=== PATIENT | female | born 1960 | race Caucasian/White ===

== ENCOUNTER 2019-09-29 14:36 | Inpatient (IN) | payer MEDICARE ==
[~2019-09-29] VITALS: Ht 154.9 cm; Wt 95.3 kg
--- NOTE | 2019-09-29 14:40 | NUR ---
Dr. Sequeira here to see pt for MSE.
[2019-09-29] MEDS ORDERED: LEVO200T9 PO (14:58)
[2019-09-29] MEDS ORDERED: DULO60CA45 PO (14:58)
[2019-09-29] MEDS ORDERED: BUDE10.22 INH (14:58)
[2019-09-29] MEDS ORDERED: GABA600T12 PO (14:58)
[2019-09-29] MEDS ORDERED: AMLO10TA7 PO (14:58)
[2019-09-29] MEDS ORDERED: QUET100T PO (14:58)
--- NOTE | 2019-09-29 15:53 | NUR ---
Full telephone SBAR report given to [facility] ZANA Hicks.
--- NOTE | 2019-09-29 16:20 | NUR ---
Brought pt via wheelchair to [facility] for admission. Pt stable and nad noted upon transfer.
--- NOTE | 2019-09-29 16:25 | NUR ---
Gps/Collections Professional- Admitted a 59 years old female via wheel chair. Alert, oriented, noted emotionally labile during admission , crying spells noted. Skin intact, face flushed, tattoos noted to her arms. Upon face to face , Patient admitted to still feeling sad, denies any plan to hurt self at this time. Patient claimed she uses wheel chair r/t her osteoarthritis on her hips, > pain with mobility. Alert oriented x3-4 . Oriented to unit settings, routine admission care done. Safety reviewed, emphasized.
[2019-09-29 16:30] VITALS: BP 153/91
[2019-09-29] MEDS ORDERED: BLOOD SUGAR DIAGNOSTIC 1 EACH STRIP VI ONE (16:45)
[2019-09-29] MEDS ORDERED: MAG HYDROX/AL HYDROX/SIMETH 30 ML LIQUID UDC PO PRN (16:45)
[2019-09-29] MEDS ORDERED: MAGNESIUM HYDROXIDE 30 ML LIQUID UDC PO PRN (16:45)
[2019-09-29] MEDS ORDERED: LORAZEPAM 1 MG TABLET PO PRN (16:45)
[2019-09-29 20:00] VITALS: BP 140/73
--- NOTE | 2019-09-29 20:10 | NUR ---
Patient received in bed AAO x3. No acute distress or SOB was noted. No complain of pain. No SI. No behavioral issues. Calm and quite. Bed in low and locked position.Bed alarm is on. Continue to monitor.
[2019-09-30] MEDS: LEVOTHYROXINE SODIUM 25 MCG TABLET PO SCH (06:03)
[2019-09-30] MEDS: LEVOTHYROXINE SODIUM 200 MCG TABLET PO SCH (06:03)
[2019-09-30 07:03] LABS: BILIRUBIN,TOTAL 0.5 mg/dL (0.2-1.0); CREATININE 0.7 mg/dL (0.6-1.3); POTASSIUM 3.7 mmol/L (3.5-5.1); TOTAL PROTEIN, SERUM 7.2 g/dL (6.4-8.2)
[2019-09-30 07:06] LABS: BASOPHILS % (AUTO) 0.8 % (0.0-2.0); EOSINOPHILS # (AUTO) 0.1 K/uL (0.0-0.7); EOSINOPHILS % (AUTO) 1.7 % (0.0-7.0); HEMATOCRIT 33.1 % (31.2-41.9); HEMOGLOBIN 10.9 g/dL (10.9-14.3); LYMPHOCYTES # (AUTO) 1.5 K/uL (20.0-40.0); LYMPHOCYTES % (AUTO) 31.3 % (20.5-51.5); MEAN CORPUSCULAR HEMOGLOBIN 29.7 uug (24.7-32.8); MEAN CORPUSCULAR HGB CONC 33 g/dL (32.3-35.6); MEAN CORPUSCULAR VOLUME 90.3 fL (75.5-95.3); MONOCYTES # (AUTO) 0.5 K/uL (2.0-10.0); MONOCYTES % (AUTO) 10.4 % (0.0-11.0); NEUTROPHILS # (AUTO) 2.7 K/uL (1.8-8.9); NEUTROPHILS % (AUTO) 55.8 % (38.5-71.5); PLATELET COUNT (AUTO) 282 K/uL (179-408); RED BLOOD CELL COUNT(AUTO) 3.67 MIL/uL (3.63-4.92); WHITE BLOOD COUNT (AUTO) 4.9 K/uL (3.8-11.8)
[2019-09-30 07:13] LABS: THYROID STIMULATING HORMONE 43.855 mIU/mL (0.358-3.740)
[2019-09-30 07:30] VITALS: BP 137/89
[2019-09-30 07:58] LABS: MAGNESIUM 1.9 mg/dL (1.8-2.4); PHOSPHOROUS 2.7 mg/dL (2.5-4.9)
[2019-09-30] MEDS ORDERED: ZOLPIDEM 5 MG TABLET PO PRN (08:00)
[2019-09-30] MEDS: AMLODIPINE 10 MG TABLET PO SCH (08:38)
[2019-09-30] MEDS ORDERED: LEVOTHYROXINE SODIUM 200 MCG TABLET PO SCH (09:00)
--- NOTE | 2019-09-30 10:56 | NUR ---
Social Work Initial Discharge Plan: Per records, patient resides at [address] [place] [id number]; ([phone]). Per pt, she would like to return back and she stated that she lives with her friend Gabriel ([phone]) ([phone]). terrazzo worker apprentice will work with the patient and the MD regarding appropriate discharge planning. terrazzo worker apprentice will work with the patient and the MD regarding appropriate discharge planning. terrazzo worker apprentice will form a safe and proper discharge.
--- NOTE | 2019-09-30 10:58 | NUR ---
Social Work Family Contact: outside maintenance worker contacted patient's son Maximino ([phone]) and left a voicemail. This jingle writer also contacted patient's friend Gabriel ([phone]) ([phone]) and was unable to reach. Per patient, she lives with her friend Gabriel. This jingle writer was unable to confirm at this moment and will attempt again.
--- NOTE | 2019-09-30 12:15 | NUR ---
Social Work Family Contact: shearing shed worker spoke with patient's son Maximino ([phone]) who stated that he has minimal contact with patient. Per Maximino, he stated that last he heard was his mother was living at a Motel.
[2019-09-30] MEDS: FLUTICASONE/VILANTEROL 1 EACH BLST.W.DEV INH SCH (12:58)
[2019-09-30] MEDS: ASPIRIN 81 MG TAB.CHEW PO SCH (12:58)
--- NOTE | 2019-09-30 14:10 | NUR ---
Gps/Corporate Intern- Showered self ind. after set up. Participated in her therapy, stayed up on her wheel chair, roam around . Interacting fairly weel with her peers. Seen by Dr Bailey.
[2019-09-30] MEDS: DULOXETINE 60 MG CAPSULE.DR PO SCH (14:59)
[2019-09-30 15:29] VITALS: BP 132/87
[2019-09-30] MEDS: GABAPENTIN 300 MG CAPSULE PO SCH (16:13)
[2019-09-30] MEDS: QUETIAPINE FUMARATE 100 MG TABLET PO SCH (20:33)
[2019-09-30 20:44] VITALS: BP 135/85
[2019-09-30] MEDS ORDERED: ATORVASTATIN 20 MG TABLET PO SCH (21:00)
[2019-10-01] MEDS: LEVOTHYROXINE SODIUM 25 MCG TABLET PO SCH (06:15)
[2019-10-01] MEDS: LEVOTHYROXINE SODIUM 200 MCG TABLET PO SCH (06:16)
[2019-10-01 06:26] LABS: BILIRUBIN,TOTAL 0.4 mg/dL (0.2-1.0); CREATININE 0.8 mg/dL (0.6-1.3); POTASSIUM 3.5 mmol/L (3.5-5.1)
[2019-10-01 07:30] VITALS: BP 136/80
[2019-10-01] MEDS: GABAPENTIN 300 MG CAPSULE PO SCH ×3 (08:45→16:15)
[2019-10-01] MEDS: ASPIRIN 81 MG TAB.CHEW PO SCH (08:45)
[2019-10-01] MEDS: AMLODIPINE 10 MG TABLET PO SCH (08:46)
[2019-10-01] MEDS: FLUTICASONE/VILANTEROL 1 EACH BLST.W.DEV INH SCH (08:48)
[2019-10-01] MEDS: DULOXETINE 60 MG CAPSULE.DR PO SCH (08:48)
[2019-10-01 16:00] VITALS: BP 135/81
--- NOTE | 2019-10-01 20:00 | NUR ---
RECEIVED PATIENT IN THE DAY ROOM WATCHING TV AND INTERACTING WITH OTHER CLIENTS. PATIENT NOTED A/O X 3, CALM AND PLEASANT UPON APPROACHED. UPON INTERVIEW, PATIENT DENIES SI/HI/VH/AV, PT IS ABLE TO CFS. SHE IS REASSURED FOR HER SAFETY, SAFETY AND FALL PRECAUTION IN PLACE. V/S STABLE. WILL CONTINUE TO MONITOR.
[2019-10-01 20:18] VITALS: BP 147/89
[2019-10-01] MEDS: QUETIAPINE FUMARATE 100 MG TABLET PO SCH (20:23)
[2019-10-01] MEDS: LORAZEPAM 0.5 MG TABLET PO PRN (21:44)
[2019-10-01] MEDS: ACETAMINOPHEN 325 MG TABLET PO PRN (21:44)
--- NOTE | 2019-10-01 21:45 | NUR ---
PATIENT APPROACHED THE NURSING STATION STATING THAT SHE IS FEELING ANXIOUS; HOWEVER, SHE CONTINUE DENYING SI. ABLE TO CFS. ATIVAN 0.5MG PO PRN WAS GIVEN ALONG WITH TYLENOL 650MG PO FOR GENERALIZED MILD PAIN. PATIENT IS REASSURED AND REDIRECTED. WILL CONTINUE TO MONITOR.
--- NOTE | 2019-10-01 23:00 | NUR ---
PATIENT IS SLEEPING COMFORTABLE IN HER BED. WILL CONTINUE TO MONITOR Q15 MIN.
[2019-10-02] MEDS: LEVOTHYROXINE SODIUM 200 MCG TABLET PO SCH (06:37)
[2019-10-02] MEDS: LEVOTHYROXINE SODIUM 25 MCG TABLET PO SCH (06:37)
[2019-10-02 07:30] VITALS: BP 136/88
[2019-10-02] MEDS: DULOXETINE 60 MG CAPSULE.DR PO SCH (08:30)
[2019-10-02] MEDS: ASPIRIN 81 MG TAB.CHEW PO SCH (08:31)
[2019-10-02] MEDS: GABAPENTIN 300 MG CAPSULE PO SCH ×3 (08:31→16:29)
[2019-10-02] MEDS: AMLODIPINE 10 MG TABLET PO SCH (08:31)
[2019-10-02] MEDS: FLUTICASONE/VILANTEROL 1 EACH BLST.W.DEV INH SCH (08:32)
[2019-10-02 15:16] VITALS: BP 126/83
--- NOTE | 2019-10-02 15:50 | NUR ---
Gps/Colorer Hides And Skins- Patient came crying to the Nurses station, claimed one the patient, made her get upset, claimed the pt. was passing out gas, making funny sounds/noise while they are watching TV . Pt. stated" i just want to punch him " patient making a fist, face flushed w/ anger. Instructed pt to stay away from him, relax, prn ativan 0.5 mg 1 tab given po.
[2019-10-02] MEDS: LORAZEPAM 0.5 MG TABLET PO PRN ×2 (15:51→22:04)
[2019-10-02] MEDS: QUETIAPINE FUMARATE 100 MG TABLET PO SCH (20:29)
[2019-10-02 20:38] VITALS: BP 141/77
[2019-10-02] MEDS: ACETAMINOPHEN 325 MG TABLET PO PRN (22:04)
--- NOTE | 2019-10-03 06:33 | NUR ---
Patient visible in dining room, fair interaction with staff and peers. Compliant with HS medication. Requested a prn for anxiety, and prn for a headache with effective outcome. Patient slept a total of six hours. Continue to monitor as well as provide a safe environment.
[2019-10-03] MEDS: LEVOTHYROXINE SODIUM 25 MCG TABLET PO SCH (07:12)
[2019-10-03] MEDS: LEVOTHYROXINE SODIUM 200 MCG TABLET PO SCH (07:13)
[2019-10-03 07:30] VITALS: BP 134/60
[2019-10-03] MEDS: ASPIRIN 81 MG TAB.CHEW PO SCH (08:39)
[2019-10-03] MEDS: DULOXETINE 60 MG CAPSULE.DR PO SCH (08:39)
[2019-10-03] MEDS: FLUTICASONE/VILANTEROL 1 EACH BLST.W.DEV INH SCH (08:39)
[2019-10-03] MEDS: AMLODIPINE 10 MG TABLET PO SCH (08:39)
[2019-10-03] MEDS: GABAPENTIN 300 MG CAPSULE PO SCH ×3 (09:56→16:38)
[2019-10-03] MEDS: LORAZEPAM 0.5 MG TABLET PO PRN ×2 (13:17→18:59)
--- NOTE | 2019-10-03 14:29 | NUR ---
Received patient in bed asleep this am. As the morning progressed and breakfast trays were being passed out, patient was heard yelling from the bed for " Everybody shut up! Its too noisy out there". Patient has been compliant with medications but claims she can not go into the day room without receiving a "Ativan, because the other patients annoy me ". Patient is very labile, laughing and socializing one minute, then having a tantrum and crying the next. Study Abroad Coordinator able to engage in meaningful conversations for short periods of time. Continuing to monitor for safety and behavior escalation. No acute distress noted at this time.
[2019-10-03 16:00] VITALS: BP 134/81
[2019-10-03] MEDS: QUETIAPINE FUMARATE 100 MG TABLET PO SCH (20:21)
[2019-10-03 20:39] VITALS: BP 133/88
[2019-10-04] MEDS: LEVOTHYROXINE SODIUM 200 MCG TABLET PO SCH (06:00)
[2019-10-04] MEDS: LEVOTHYROXINE SODIUM 25 MCG TABLET PO SCH (06:00)
[2019-10-04 07:39] VITALS: BP 112/64
[2019-10-04] MEDS: LORAZEPAM 0.5 MG TABLET PO PRN ×3 (07:48→21:09)
[2019-10-04] MEDS: FLUTICASONE/VILANTEROL 1 EACH BLST.W.DEV INH SCH (08:01)
[2019-10-04] MEDS: ASPIRIN 81 MG TAB.CHEW PO SCH (08:01)
[2019-10-04] MEDS: GABAPENTIN 300 MG CAPSULE PO SCH ×3 (08:01→16:38)
[2019-10-04] MEDS: DULOXETINE 60 MG CAPSULE.DR PO SCH (08:01)
[2019-10-04] MEDS: AMLODIPINE 10 MG TABLET PO SCH (08:01)
--- NOTE | 2019-10-04 09:03 | NUR ---
Social Work Coordination of Care: beet worker contacted [facility] ([phone]) and spoke with Linnette who confirmed that patient has a room. Room 144.
--- NOTE | 2019-10-04 10:16 | NUR ---
Social Work Coordination of Care: fast foods worker contacted [facility] ([phone]) and spoke with Yisel who scheduled an appointment. Patient will follow-up with (psychiatrist) Dr. Kahn at [facility] [address]; ([phone]) and has an appointment scheduled on October 10 at 8AM via telephone. fast foods worker contacted [facility] ([phone]) and spoke with Deepa who scheduled an appointment. Patient will follow-up with (Lag Screwer) Dr. Richardson at [facility] [address] [place] [address]; ([phone]) and has an appointment scheduled on October 11 at 10AM.
--- NOTE | 2019-10-04 12:51 | NUR ---
Social Work Firearms Report: Overlock Hemmer completed and submitted a [employer] firearms report for 5250 grave disability certification. A copy of report has been placed in patient chart.
--- NOTE | 2019-10-04 13:02 | NUR ---
Social Work Brief Substance Abuse Intervention: Patient was provided with a brief substance abuse intervention and referred to the following substance abuse programs: [facility] Substance Abuse Self-helpline ([phone]); [facility] [address] [place] [address] ([phone]); [facility] [address] [facility] [address] ([phone]); [facility] ([phone]); [facility] ([phone]); [facility] ([phone]); [facility] ([phone]).
--- NOTE | 2019-10-04 13:19 | NUR ---
Social Work Individual Therapy: habilitation worker met with patient for brief counseling. habilitation worker assessed for patients level of suicidality. Patient denies SI. Patient was tearful with this keno writer and stated that she wants to go home. Patient stated that she was never SI and that she does not know why she was brought to the hospital. This keno writer comforted patient and actively listened. This keno writer advised patient to alert this keno writer or the nursing staff if she were to feel sad. habilitation worker will provide resources upon discharge.
[2019-10-04 16:30] VITALS: BP 118/72
[2019-10-04 19:55] VITALS: BP 139/86
[2019-10-04] MEDS: QUETIAPINE FUMARATE 100 MG TABLET PO SCH (20:07)
--- NOTE | 2019-10-04 23:00 | NUR ---
received to care, up in w/c, watching tv with peers. pleasant upon approach. denies SI, or desire to harm self. no mood swings observed. remains calm, and appropriate. PRN ativan was given for anxiety, at 2108. as of 2299, she is asleep, in bed. no distress noted. will continue to monitor closely.
[2019-10-05] MEDS: LORAZEPAM 0.5 MG TABLET PO PRN (03:52)
--- NOTE | 2019-10-05 03:52 | NUR ---
PRN ativan, given, for anxiety.
--- NOTE | 2019-10-05 04:40 | NUR ---
appears to be asleep. no distress noted.
--- NOTE | 2019-10-05 06:00 | NUR ---
slept 6.25 hours. continues to sleep. no distress noted.
[2019-10-05] MEDS: LEVOTHYROXINE SODIUM 25 MCG TABLET PO SCH (06:29)
[2019-10-05] MEDS: LEVOTHYROXINE SODIUM 200 MCG TABLET PO SCH (06:34)
[2019-10-05 08:04] VITALS: BP 127/72
[2019-10-05 08:53] VITALS: BP 127/72
[2019-10-05] MEDS: GABAPENTIN 300 MG CAPSULE PO SCH (08:53)
[2019-10-05] MEDS: AMLODIPINE 10 MG TABLET PO SCH (08:53)
[2019-10-05] MEDS: ASPIRIN 81 MG TAB.CHEW PO SCH (08:54)
[2019-10-05] MEDS: DULOXETINE 60 MG CAPSULE.DR PO SCH (08:54)
[2019-10-05] MEDS: FLUTICASONE/VILANTEROL 1 EACH BLST.W.DEV INH SCH (08:55)
--- NOTE | 2019-10-05 09:21 | NUR ---
Social Work Individual Therapy: scale assembly set up worker met with patient for brief counseling. scale assembly set up worker assessed for patients level of suicidality. Patient denies SI. Patient presented with euthymic mood and was excited to go back home to her boyfriend Gabriel. Patient reports that she is not SI and has lots of support from her boyfriend. This auto service writer actively listened and provided emotional support.
--- NOTE | 2019-10-05 09:43 | NUR ---
Social Work Discharge Note: Patient is choosing to be discharged to [address] [facility], [place] [address]; ([phone]) and will be discharged today. Patient will be provided with taxi transportation today at 11AM and given a taxi voucher. Patient is aware and agreeable with discharge plans. Patient denies suicidal or homicidal ideation. Patient presents as alert and oriented x4. Patient presents with appropriate mood and congruent affect. Patient does not have any family members at the moment. Patient will follow-up with (psychiatrist) Dr. Kahn at [facility] [address]; ([phone]) and has an appointment scheduled on October 10 at 8AM via telephone. Patient will follow-up with (Laborer Steel Handling) Dr. Richardson at [address]; ([phone]) and has an appointment scheduled on October 11 at 10AM. group home worker provided patient with the [phone] [facility] Intermediate Program list. group home worker provided patient with a copy of the [facility] homeless directory which provides information on locations for hot meals, sack lunches, food pantries, and showers Patient was provided with a brief substance abuse intervention and referred to the following substance abuse programs: [facility]stance Abuse Self-helpline ([phone]); [facility] ([phone]); [facility] ([phone]); [facility] ([phone]); [facility] ([phone]); [facility] [phone]; [facility] ([phone]). Patient signed the homeless waiver upon discharge and copy was placed in the chart.
--- NOTE | 2019-10-05 12:19 | NUR ---
Pt is being discharged back to the [facility] when she was staying prior to admission. Pt is aware, willing to go. Pt sign all paperwork. Discharge teaching was provided and the patient verbalizes understanding. VS are stable. Prescriptions provided. Pt was assisted to the taxi.
== END 2019-10-05 12:34 | disposition home or self-care (01) | DRG 885 ==
LOC: ER 14:36 → GPS 15:24
PROVIDERS: ADMIT Psychiatry & Neurology Psychiatry; ATTEND Nurse Practitioner Acute Care
DX: F31.30 Bipolar disorder, current episode depressed, mild or moderate severity, unspecified (principal); F23 Brief psychotic disorder; R45.851 Suicidal ideations; E66.01 Morbid (severe) obesity due to excess calories; E03.9 Hypothyroidism, unspecified; E78.5 Hyperlipidemia, unspecified; I10 Essential (primary) hypertension; E87.6 Hypokalemia; J44.9 Chronic obstructive pulmonary disease, unspecified; R74.0 Nonspecific elevation of levels of transaminase and lactic acid dehydrogenase [LDH]; K76.0 Fatty (change of) liver, not elsewhere classified; Z68.39 Body mass index [BMI] 39.0-39.9, adult
CPT/HCPCS: 36415; 71045; 76705; 83735; 84100; 84443; 85025; 93005; A4663